=== PATIENT | female | born 1980 ===

== ENCOUNTER 2025-03-06 09:30 | Inpatient (IN) | payer OTHER ==
[~2025-03-06] VITALS: Ht 121.9 cm; Wt 56.7 kg
[2025-03-06 11:18] VITALS: BP 120/79
[2025-03-06 11:28] LABS: BASO % 0.2 % (0.1-1.2); EOS # 0.05 (0.04-0.54); EOS % 0.6 % (0.7-7.0); LYMPH # 1.82 (1.18-3.74); LYMPH % 21.4 % (19.3-53.1); MEAN PLATELET VOLUME 11.30 fl (9.4-12.4); MONO # 0.53 (0.24-0.82); MONO % 6.2 % (4.7-12.5); NEUT # 6.07 (1.56-6.13); NEUT % 71.4 % (34.0-71.1); RED CELL DISTRIBUTION WIDTH 14.3 % (11.6-14.4)
[2025-03-06 11:47] LABS: URINE APPEARANCE Clear; URINE BILIRRUBIN Negative (NEGATIVE); URINE BLOOD Negative; URINE COLOR Yellow; URINE GLUCOSE Negative (NEGATIVE); URINE KETONE Negative (NEGATIVE); URINE LEUKOCYTE Negative; URINE NITRATE Negative; URINE PROTEIN Negative (NEGATIVE); URINE UROBILINOGEN 0.2 E.U./dl
[2025-03-06 11:50] LABS: URINE BACTERIA 64.7 uL (0.0-1933)
[2025-03-06 11:55] LABS: URINE CAST 0.00 uL (0.0-1.40); URINE EPITHELIAL CELLS 0.7 uL (0.0-38.8); URINE RBC 0.0 uL (0.0-20.8); URINE WBC 1.2 uL (0.0-23.2)
[2025-03-06 12:01] LABS: INR 1.09
[2025-03-06 12:57] LABS: ALT/SGPT 50.0 U/L (12-78); AST/SGOT 28.0 U/L (15-37); BILIRUBIN TOTAL 0.54 mg/dL (0.3-1.2); BUN CREA RATIO 24.0 (7.0-25.0); CREATININE SERUM 0.78 mg/dL (0.55-1.02); GFR 79.51; GLOBULINA 3.6 G/DL (2.4-3.5); GLUCOSE FASTING 96.0 mg/dL (65-100); OSMOLALITY SERUM 285.0 MOSM/KG (275-295)
[2025-03-06 13:55] LABS: RH POSITIVE
[2025-03-11] MEDS ORDERED: METRONIDAZOLE/SODIUM CHLORIDE 500 MG/100 ML PIGGYBACK IV ONE (11:45)
[2025-03-11] MEDS ORDERED: levoFLOXacin IN DEXTROSE 5 % 5 MG/ML PIGGYBAG IV ONE (11:45)
[2025-03-11] MEDS ORDERED: THROMBIN,HU/FIBRINOGEN/CALCIUM 10 ML SYRINGE TOP ONE (13:30)
[2025-03-11] MEDS ORDERED: VISTASEAL DUAL APPICATOR 1 EACH APPL TOP ONE (13:30)
[2025-03-11] MEDS ORDERED: POVIDONE-IODINE 118 ML BOTT TOP ONE (13:30)
[2025-03-11] MEDS ORDERED: BUPIVACAINE HCL/PF 0.25% 30ML VIAL InF ONE (13:30)
[2025-03-11] MEDS ORDERED: LIDOCAINE HCL 1%/EPINEPHRINE 20ML VIAL IJ ONE (13:45)
[2025-03-11] MEDS ORDERED: ONDANSETRON HCL 2 MG/ML VIAL IV SCH (14:29)
[2025-03-11] MEDS ORDERED: ACETAMINOPHEN 325 MG TABLET PO SCH (14:30)
[2025-03-11] MEDS ORDERED: GABAPENTIN 100 MG CAPSULE PO SCH (14:30)
[2025-03-11] MEDS ORDERED: RINGERS SOLUTION,LACTATED 1,000 ML IV SCH (14:31)
[2025-03-11] MEDS ORDERED: INTESTINEX680 M1 (14:32)
[2025-03-11] MEDS ORDERED: SUGAMMADEX SODIUM 200 MG/2 ML VIAL IV ONE (15:15)
[2025-03-11] MEDS ORDERED: ONDANSETRON HCL 2 MG/ML VIAL IV ONE (15:50)
[2025-03-11] MEDS ORDERED: MORPHINE SULFATE 4 MG/ML VIAL IV ONE (16:35)
[2025-03-11 17:43] LABS: BASO % 0.1 % (0.1-1.2); EOS # 0.01 (0.04-0.54); EOS % 0.1 % (0.7-7.0); LYMPH # 0.86 (1.18-3.74); LYMPH % 6.3 % (19.3-53.1); MEAN PLATELET VOLUME 11.90 fl (9.4-12.4); MONO # 0.73 (0.24-0.82); MONO % 5.3 % (4.7-12.5); NEUT # 12.07 (1.56-6.13); NEUT % 87.8 % (34.0-71.1); RED CELL DISTRIBUTION WIDTH 14.3 % (11.6-14.4)
[2025-03-11 19:26] VITALS: BP 129/79; O2SAT 100
[2025-03-11 20:23] LABS: BASO % 0.1 % (0.1-1.2); EOS # 0.00 (0.04-0.54); EOS % 0.0 % (0.7-7.0); LYMPH # 0.50 (1.18-3.74); LYMPH % 3.7 % (19.3-53.1); MEAN PLATELET VOLUME 11.70 fl (9.4-12.4); MONO # 0.58 (0.24-0.82); MONO % 4.3 % (4.7-12.5); NEUT # 12.38 (1.56-6.13); NEUT % 91.7 % (34.0-71.1); RED CELL DISTRIBUTION WIDTH 14.3 % (11.6-14.4)
[2025-03-11 20:48] LABS: BUN CREA RATIO 17.0 (7.0-25.0); CREATININE SERUM 0.66 mg/dL (0.55-1.02); GFR 96.41; GLUCOSE FASTING 126.0 mg/dL (65-100); OSMOLALITY SERUM 278.0 MOSM/KG (275-295)
[2025-03-12 02:01] VITALS: BP 107/61
[2025-03-12 06:20] LABS: BASO % 0.2 % (0.1-1.2); EOS # 0.01 (0.04-0.54); EOS % 0.1 % (0.7-7.0); LYMPH # 1.12 (1.18-3.74); LYMPH % 9.7 % (19.3-53.1); MEAN PLATELET VOLUME 12.00 fl (9.4-12.4); MONO # 0.93 (0.24-0.82); MONO % 8.1 % (4.7-12.5); NEUT # 9.40 (1.56-6.13); NEUT % 81.6 % (34.0-71.1); RED CELL DISTRIBUTION WIDTH 14.5 % (11.6-14.4)
[2025-03-12 06:53] LABS: BUN CREA RATIO 13.0 (7.0-25.0); CREATININE SERUM 0.75 mg/dL (0.55-1.02); GFR 83.19; GLUCOSE FASTING 104.0 mg/dL (65-100); OSMOLALITY SERUM 281.0 MOSM/KG (275-295)
[2025-03-12 08:00] VITALS: BP 130/79
== END 2025-03-12 10:13 | disposition home or self-care (01) | DRG 743 ==
LOC: SURH 03-11 09:30 → O/R 03-11 11:31 → SURH 03-11 13:30 → OB/GYN 03-11 15:03
PROVIDERS: Obstetrics & Gynecology Gynecology; Surgery; Urology; ADMIT Student in an Organized Health Care Education/Training Program; ATTEND Student in an Organized Health Care Education/Training Program
PROC: 0T788DZ Dilation of Bilateral Ureters with Intraluminal Device, Via Natural or Artificial Opening Endoscopic (ICD-10-PCS; 2025-03-11)
PROC: 0UT94ZZ Resection of Uterus, Percutaneous Endoscopic Approach (ICD-10-PCS; principal; 2025-03-11 13:30)
PROC: 0UT74ZZ Resection of Bilateral Fallopian Tubes, Percutaneous Endoscopic Approach (ICD-10-PCS; 2025-03-11 13:30)
PROC: 0DTJ4ZZ Resection of Appendix, Percutaneous Endoscopic Approach (ICD-10-PCS; 2025-03-11 13:30)
DX: D25.0 Submucous leiomyoma of uterus (principal); N80.03 Adenomyosis of the uterus; N94.5 Secondary dysmenorrhea; N80.559 Endometriosis of other parts of the colon, unspecified depth